=== PATIENT | female | born 1955 | race Caucasian/White ===

== ENCOUNTER 2019-08-18 09:26 | Day surgery (SDC) | payer OTHER ==
[~2019-08-18] VITALS: Ht 165.1 cm; Wt 88.2 kg
[~2019-08-18 09:26] MED LIST: ASPI81EC PO; CRUTCH2 USE; HYDACE5325 PO; IBUP200; LEVSOD100 PO; LEVSOD75 PO; LOSA50; RXHYD5325 PO; TIZA4; VITAMIN D310 MCG
== END 2019-08-18 11:35 | disposition home or self-care (01) ==
LOC: ORSCSDS 09:26
PROVIDERS: Internal Medicine Gastroenterology
PROC: 0DBK8ZX Excision of Ascending Colon, Via Natural or Artificial Opening Endoscopic, Diagnostic (ICD-10-PCS; principal; 2019-08-18 10:45)
PROC: 0DBN8ZX Excision of Sigmoid Colon, Via Natural or Artificial Opening Endoscopic, Diagnostic (ICD-10-PCS; principal; 2019-08-18 10:45)
DX: Z12.11 Encounter for screening for malignant neoplasm of colon (principal); D12.5 Benign neoplasm of sigmoid colon; D12.2 Benign neoplasm of ascending colon; K57.30 Diverticulosis of large intestine without perforation or abscess without bleeding; I10 Essential (primary) hypertension; E78.5 Hyperlipidemia, unspecified; E03.9 Hypothyroidism, unspecified; R73.03 Prediabetes; F17.210 Nicotine dependence, cigarettes, uncomplicated; Z79.899 Other long term (current) drug therapy
CPT/HCPCS: 88305; J2704; J7120

== ENCOUNTER → 2022-09-04 | Outpatient (CLI) | payer OTHER | END | disposition home or self-care (01) | LOC: LAB SHORT 15:19 → PLD 15:19 | DX: L57.0 Actinic keratosis (principal) | CPT/HCPCS: 88305 ==

== ENCOUNTER 2024-09-06 12:41 | Day surgery (SDC) | payer MEDICARE, OTHER ==
[~2024-09-06] VITALS: Ht 165.1 cm; Wt 81.4 kg
[~2024-09-06 12:41] MED LIST changes: +ARMOUR THYROID90 M2; +FINA5 PO; +LOSA50 PO; +Lactated Ringer's 1,000 ML IV ONE; +MINO2.5 PO; +propofoL 50 ML IV ONE
[2024-09-06] MEDS ORDERED: Lactated Ringer's 1,000 ML IV ONE (13:49)
[2024-09-06 15:29] VITALS: BP 128/69
== END 2024-09-06 15:25 | disposition home or self-care (01) ==
LOC: ORSCSDS 12:41
PROVIDERS: Internal Medicine Gastroenterology
PROC: 0DBN8ZX Excision of Sigmoid Colon, Via Natural or Artificial Opening Endoscopic, Diagnostic (ICD-10-PCS; principal; 2024-09-06 14:00)
PROC: 0DBK8ZX Excision of Ascending Colon, Via Natural or Artificial Opening Endoscopic, Diagnostic (ICD-10-PCS; principal; 2024-09-06 14:00)
DX: Z12.11 Encounter for screening for malignant neoplasm of colon (principal); Z86.0100 Personal history of colon polyps, unspecified; Z83.719 Family history of colon polyps, unspecified; K57.30 Diverticulosis of large intestine without perforation or abscess without bleeding; K63.89 Other specified diseases of intestine; K63.5 Polyp of colon; D12.2 Benign neoplasm of ascending colon; I10 Essential (primary) hypertension; E03.9 Hypothyroidism, unspecified; Z79.899 Other long term (current) drug therapy
CPT/HCPCS: 88305; J2704; J7120